=== PATIENT | female | born 1985 | race Two or more races ===

== ENCOUNTER 2016-08-16 19:41 | Emergency (ER) | payer SELFPAY ==
--- NOTE | 2016-08-16 20:02 | NUR ---
CALLED FOR PT NO ANSWER LWBT
== END 2016-08-16 20:05 | disposition left against medical advice (07) ==
LOC: ER 19:45
DX: R06.02 Shortness of breath (principal); Z53.21 Procedure and treatment not carried out due to patient leaving prior to being seen by health care provider

== ENCOUNTER 2017-11-18 14:55 | Emergency (ER) | payer OTHER ==
[~2017-11-18] VITALS: Ht 167.6 cm; Wt 63.5 kg
--- NOTE | 2017-11-18 14:55 | NUR ---
MSE WAS DONE BY DR SONG AT BEDSIDE.
--- NOTE | 2017-11-18 15:02 | NUR ---
Patient discharged to home in stable conditon. Written and verbal after care instructions given. Patient verbalizes understanding of instructions.
[2017-11-18 15:03] VITALS: BP 114/69
== END 2017-11-18 15:05 | disposition home or self-care (01) ==
LOC: ER 14:56
DX: H65.93 Unspecified nonsuppurative otitis media, bilateral (principal)
CPT/HCPCS: A4663

== ENCOUNTER 2018-02-08 11:51 | Emergency (ER) | payer OTHER ==
[~2018-02-08] VITALS: Ht 167.6 cm; Wt 68.0 kg
--- NOTE | 2018-02-08 12:08 | NUR ---
[employer] Rigger assumes care. Patient is for discharge. Patient discharged to home in stable conditon & brisk steady gait. Written and verbal after care instructions given to patient. Patient verbalizes understanding of instructions.
== END 2018-02-08 12:12 | disposition home or self-care (01) ==
LOC: ER 11:53
DX: H92.02 Otalgia, left ear (principal)
CPT/HCPCS: A4663